=== PATIENT | female | born 1980 | race Caucasian/White ===

== ENCOUNTER 2017-10-30 20:13 | Emergency (ER) | payer OTHER ==
[~2017-10-30 20:13] MED LIST: IBUP800 PO; PREN0.01 PO
[2017-10-30 20:16] VITALS: BP 109/60; PULSE 121; RESP 16; TEMP 99.9; O2SAT 100
[2017-10-30] MEDS ORDERED: CRYS28TA PO (21:13)
--- NOTE | 2017-10-30 21:44 | RADRPT ---
EXAM DATE/TIME: 10/30/2017 21:26 [place] COMPARISON: No previous studies available for comparison. INDICATIONS : Cough and shortness of breath. MEDICAL HISTORY : None. SURGICAL HISTORY : None. ENCOUNTER: Initial ACUITY: 3 days PAIN SCORE: 0/10 LOCATION: Bilateral chest FINDINGS: A single view of the chest demonstrates the lungs to be symmetrically aerated without evidence of mas s, infiltrate or effusion. The cardiomediastinal contours are unremarkable. Osseous structures are intact. CONCLUSION: No acute disease. Angelito Cheney Jr., MD on October 30, 2017 at 21:41 Board Certified Radiologist. This report was verified electronically.
[2017-10-30] MEDS ORDERED: DOXY100C PO (22:55)
--- NOTE | 2017-10-30 23:03 | PD ---
HPI Chief Complaint: Cold / Flu Symptoms Time Seen by Provider: 22:48 Travel History International Travel<30 days: No Contact w/Intl Traveler<30days: No Traveled to known affect area: No History of Present Illness HPI 37-year-old white female presents to emergency Department with complaints of upper respiratory tract symptoms for the past week. Patient admits to subjective fever and chills, headache, congestion, cough, myalgias, arthralgias or general malaise. She denies any nausea vomiting. No abdominal pain or diarrhea. No dysuria or frequency. Symptoms are moderate. Denies diabetes. Denies asthma. PFSH Past Medical History Medical History: Denies Significant Hx Immunizations Current: Yes Tetanus Vaccination: < 5 Years ?: Not LMP: 2 weeks ago Past Surgical History Section: Yes Gynecologic Surgery: Yes (c section) Social History Alcohol Use: No Tobacco Use: No Substance Use: No Allergies-Medications (Allergen,Severity, Reaction): Coded Allergies: No Known Allergies (Verified Adverse Reaction, Unknown, 10/30/17) Reported Meds & Prescriptions Reported Meds & Active Scripts Active Doxycycline Hyclate 100 Mg Cap 100 Mg PO BID Reported Cryselle-28 (Norgestrel-Ethinyl Estradiol) 0.3-30 Mg-Mcg Tab 1 Tab PO DAILY Review of Systems Except as stated in HPI: all other systems reviewed are Neg Physical Exam Narrative GENERAL: Well-developed, well-nourished in no acute distress. Nontoxic appearing. HEAD: Normocephalic, atraumatic. EYES: Pupils equal round and reactive. Extraocular motions intact. No scleral icterus. No injection or drainage. ENT: TMs clear without erythema. The external auditory canals clear. Nose: clear . Posterior pharynx is pink and moist. No tonsillar edema or exudate. Uvula midline. Airway patent. NECK: Trachea midline.Supple, nontender, moves head freely. No central bony tenderness or spasm. CARDIOVASCULAR: Regular rate and rhythm without murmurs, gallops, or rubs. RESPIRATORY: Clear to auscultation. Breath sounds equal bilaterally. No wheezes , rales, or rhonchi. GASTROINTESTINAL: Abdomen soft, non-tender, nondistended. No hepato-splenomegaly , or palpable masses. No guarding. EXTREMITIES: No clubbing, cyanosis, or edema. No joint tenderness, effusion, or edema noted. BACK: Nontender without deformity or crepitance. No flank tenderness. Data Data Last Documented VS Vital Signs Date Time Temp Pulse Resp B/P (MAP) Pulse Ox O2 Delivery O2 Flow Rate FiO2 10/30/17 21:16 Room Air 10/30/17 20:16 99.9 121 16 109/60 (76) 100 Orders Orders Chest, Single Ap (10/30/17 ) Ed Urine Pregnancytest Poc (10/30/17 21:17) Influenzae A/B Antigen (10/30/17 21:17) Ed Discharge Order (10/30/17 22:53) MDM Medical Decision Making Medical Screen Exam Complete: Yes Emergency Medical Condition: Yes Medical Record Reviewed: Yes Interpretation(s) Influenza: Negative Last 24 hours Impressions Chest X-Ray 10/30/17 0000 Signed Impressions: Service Date/Time: Monday, October 30, 2017 21:26 - CONCLUSION: No acute disease. Angelito Cheney Jr., MD Differential Diagnosis MDM: High Differential diagnoses: Pneumonia, bronchitis, URI, asthma, RAD, legionnaire's disease, SARS, ARDS, influenza, bronchiolitis, RSV,PE,CHF Narrative Course Patient is employed as negative. X-rays negative. This is bronchitis Diagnosis Primary Impression: acute bronchitis Patient Instructions: General Instructions Additional Instructions: Rest. Increase fluids. Tylenol and Advil. Robitussin-DM. Doxycycline. Followup with your Dr. in one week. Return to the ER for any problems. Med/Other Pt SpecificInfo: Prescription(s) given Scripts Doxycycline Hyclate (Doxycycline Hyclate) 100 Mg Cap 100 MG PO BID for Infection, #14 CAP 0 Refills Prov: Ric Andrews MD 10/30/17 Disposition: 01 DISCHARGE HOME Condition: Stable Keith Huitron Oct 30, 2017 23:03
== END 2017-10-30 23:32 | disposition home or self-care (01) ==
LOC: NEPD 20:13
DX: J20.9 Acute bronchitis, unspecified (principal)
CPT/HCPCS: 71045; 84703; 87804; 99284